=== PATIENT | female | born 1950 | race Caucasian/White ===

== ENCOUNTER → 2021-08-01 | Day surgery (SDC) | payer OTHER | END | disposition home or self-care (01) | LOC: JRADUS-SUR 10:28 | PROVIDERS: ATTEND Nurse Practitioner Family | PROC: 0H9U3ZX Drainage of Left Breast, Percutaneous Approach, Diagnostic (ICD-10-PCS; principal; 2021-08-01) | DX: C50.912 Malignant neoplasm of unspecified site of left female breast (principal); C77.3 Secondary and unspecified malignant neoplasm of axilla and upper limb lymph nodes | CPT/HCPCS: 19083; 19084; 77065-TC; 87899; 88305-TC; 88342-TC; A4648 ==

== ENCOUNTER → 2021-09-27 | Day surgery (SDC) | payer OTHER | END | disposition home or self-care (01) | LOC: FRADUS-SUR 12:02 | PROVIDERS: ATTEND Internal Medicine Hematology & Oncology | PROC: 0HBU3ZX Excision of Left Breast, Percutaneous Approach, Diagnostic (ICD-10-PCS; principal; 2021-09-27) | DX: C50.912 Malignant neoplasm of unspecified site of left female breast (principal); Z17.0 Estrogen receptor positive status [ER+]; N63.20 Unspecified lump in the left breast, unspecified quadrant | CPT/HCPCS: 19085; 77065-TC; 88305-TC; 88342-TC; A4648; A9579; C1887 ==

== ENCOUNTER 2021-10-09 04:59 | Day surgery (SDC) | payer OTHER ==
[2021-10-08 09:33] VITALS: BMI 24.0
[2021-10-09 11:15] LABS: BASO % 0.6 % (0-2.0); EOS % 2.3 % (0-4.5); HEMATOCRIT 39.8 % (32.4-45.2); HEMOGLOBIN 13.2 GM/dL (10.7-15.3); LYMPH % 33.7 % (8-40); MCH 29.8 pg (25.7-33.7); MCHC 33.2 g/dl (32.0-36.0); MEAN CELL VOLUME 89.6 fl (80-96); MEAN PLT VOLUME 8.7 fl (7.5-11.1); NEUT % 56.4 % (42.8-82.8); PLATELET COUNT 186 10^3/uL (134-434); RBC 4.44 M/mm3 (3.60-5.2); RDW 13.7 % (11.6-15.6); WHITE BLOOD COUNT 4.7 K/mm3 (4.0-10.0)
[2021-10-09] MEDS ORDERED: MIDAZOLAM HCL 2 MG/2 ML SINGLE DOSE VIAL IVPUSH ONE (13:05)
[2021-10-09] MEDS ORDERED: MIDAZOLAM HCL 2 MG/2 ML SINGLE DOSE VIAL ONE (13:50)
[2021-10-09 17:45] VITALS: BP 131/69; PULSE 75; TEMP 97.5
== END 2021-10-09 17:45 | disposition home or self-care (01) ==
LOC: JRADIR 04:59
PROVIDERS: ATTEND Internal Medicine Hematology & Oncology
DX: Z51.11 Encounter for antineoplastic chemotherapy (principal); C50.919 Malignant neoplasm of unspecified site of unspecified female breast; C79.51 Secondary malignant neoplasm of bone
CPT/HCPCS: 36415; 36561; 77001-TC-FY; 85025; C1788

== ENCOUNTER 2021-10-10 06:37 | Day surgery (SDC) | payer OTHER ==
[2021-10-10 09:09] LABS: HEMOGLOBIN 13.5 GM/dL (10.7-15.3); LYMPH % 9.5 % (8-40); MCH 29.7 pg (25.7-33.7); MCHC 32.9 g/dl (32.0-36.0); MEAN CELL VOLUME 90.4 fl (80-96); MEAN PLT VOLUME 8.5 fl (7.5-11.1); MONO % 0.5 % (3.8-10.2); PLATELET COUNT 234 10^3/uL (134-434); RBC 4.53 M/mm3 (3.60-5.2); RDW 12.9 % (11.6-15.6); WHITE BLOOD COUNT 8.1 K/mm3 (4.0-10.0)
[2021-10-10] MEDS ORDERED: SODIUM CHLORIDE 500 ML IV STA (09:17)
[2021-10-10] MEDS ORDERED: SODIUM CHLORIDE 250 ML IV STA (09:27)
[2021-10-10 09:28] LABS: CALCIUM 10.5 mg/dL (8.5-10.1)
[2021-10-10 09:29] LABS: ALBUMIN 4.1 g/dl (3.4-5.0); BLOOD UREA NITROGEN 16.5 mg/dL (7-18)
[2021-10-10] MEDS ORDERED: DEXAMETHASONE SODIUM PHOSPHATE 10 MG in SODIUM CHLORIDE 50 ML IVPB ONE (09:30)
[2021-10-10] MEDS ORDERED: PALONOSETRON HCL 0.25 MG/5 ML VIAL IVPUSH ONE (09:30)
[2021-10-10 09:32] LABS: CREATININE 0.7 mg/dL (0.55-1.3)
[2021-10-10 09:34] LABS: BILIRUBIN,TOTAL 0.4 mg/dL (0.2-1); TOT PROT 7.6 g/dl (6.4-8.2)
[2021-10-10] MEDS ORDERED: DOCETAXEL 128 MG in SODIUM CHLORIDE 250 ML IV ONE (10:00)
[2021-10-10] MEDS ORDERED: CYCLOPHOSPHAMIDE INJECTION 1,000 MG in SODIUM CHLORIDE 250 ML IVPB ONE (11:00)
[2021-10-10] MEDS ORDERED: PEGFILGRASTIM (NEULASTA ONPRO) 6 MG/0.6 ML KIT SQ ONE (11:30)
[2021-10-10 16:13] VITALS: TEMP 98.1
[2021-10-10] MEDS ORDERED: PORTA CATH FLUSH 10 ML IVPUSH PRN (16:23)
[2021-10-10 16:25] VITALS: BP 124/54; PULSE 88
== END 2021-10-10 14:30 | disposition home or self-care (01) ==
LOC: JONCCHEMO 06:37
PROVIDERS: ATTEND Internal Medicine Hematology & Oncology
PROC: 3E04305 Introduction of Other Antineoplastic into Central Vein, Percutaneous Approach (ICD-10-PCS; principal; 2021-10-10)
PROC: 3E013GC Introduction of Other Therapeutic Substance into Subcutaneous Tissue, Percutaneous Approach (ICD-10-PCS; 2021-10-10)
DX: Z51.11 Encounter for antineoplastic chemotherapy (principal); C50.919 Malignant neoplasm of unspecified site of unspecified female breast; C79.51 Secondary malignant neoplasm of bone
CPT/HCPCS: 36415; 80053; 85025; 96361; 96372; 96375; 96413; 96417; J2469; J2506; J9070; J9171

== ENCOUNTER 2021-10-31 06:49 | Day surgery (SDC) | payer OTHER ==
[2021-10-31 09:07] LABS: BASO % 0.1 % (0-2.0); HEMATOCRIT 35.1 % (32.4-45.2); HEMOGLOBIN 11.6 GM/dL (10.7-15.3); LYMPH % 8.5 % (8-40); MCH 29.3 pg (25.7-33.7); MCHC 33.1 g/dl (32.0-36.0); MEAN CELL VOLUME 88.4 fl (80-96); MEAN PLT VOLUME 7.4 fl (7.5-11.1); MONO % 1.2 % (3.8-10.2); NEUT % 90.2 % (42.8-82.8); PLATELET COUNT 407 10^3/uL (134-434); RBC 3.97 M/mm3 (3.60-5.2); RDW 13.5 % (11.6-15.6); WHITE BLOOD COUNT 9.1 K/mm3 (4.0-10.0)
[2021-10-31 09:32] LABS: CALCIUM 10.1 mg/dL (8.5-10.1)
[2021-10-31 09:33] LABS: ALBUMIN 3.7 g/dl (3.4-5.0); BLOOD UREA NITROGEN 14.3 mg/dL (7-18)
[2021-10-31 09:36] LABS: CREATININE 0.7 mg/dL (0.55-1.3)
[2021-10-31 09:38] LABS: BILIRUBIN,TOTAL 0.3 mg/dL (0.2-1); TOT PROT 7.3 g/dl (6.4-8.2)
[2021-10-31] MEDS ORDERED: SODIUM CHLORIDE 250 ML IV STA (09:42)
[2021-10-31] MEDS ORDERED: PALONOSETRON HCL 0.25 MG/5 ML VIAL IVPUSH ONE (10:00)
[2021-10-31] MEDS ORDERED: DEXAMETHASONE SODIUM PHOSPHATE 10 MG in SODIUM CHLORIDE 50 ML IVPB ONE (10:00)
[2021-10-31] MEDS ORDERED: DOCETAXEL 128 MG in SODIUM CHLORIDE 250 ML IV ONE (10:30)
[2021-10-31] MEDS ORDERED: CYCLOPHOSPHAMIDE INJECTION 1,000 MG in SODIUM CHLORIDE 250 ML IVPB ONE (11:30)
[2021-10-31] MEDS ORDERED: PEGFILGRASTIM (NEULASTA ONPRO) 6 MG/0.6 ML KIT SQ ONE (12:00)
[2021-10-31 17:57] VITALS: BP 137/72; PULSE 88; TEMP 97.5
[2021-10-31] MEDS ORDERED: PORTA CATH FLUSH 10 ML IVPUSH PRN (17:58)
== END 2021-10-31 14:15 | disposition home or self-care (01) ==
LOC: JONCCHEMO 06:49
PROVIDERS: ATTEND Internal Medicine Hematology & Oncology
DX: Z51.11 Encounter for antineoplastic chemotherapy (principal); C50.919 Malignant neoplasm of unspecified site of unspecified female breast; C79.51 Secondary malignant neoplasm of bone
CPT/HCPCS: 36415; 80053; 85025; 86704; 86705; 87340; 87517; 96361; 96367; 96375; 96413; 96417; J2469; J2506; J9070; J9171

== ENCOUNTER 2021-11-21 06:33 | Day surgery (SDC) | payer OTHER ==
[2021-11-21] MEDS ORDERED: PALONOSETRON HCL 0.25 MG/5 ML VIAL IVPUSH ONE (09:30)
[2021-11-21] MEDS ORDERED: DEXAMETHASONE SODIUM PHOSPHATE 10 MG in SODIUM CHLORIDE 50 ML IVPB ONE (09:30)
[2021-11-21] MEDS ORDERED: DOCETAXEL 128 MG in SODIUM CHLORIDE 250 ML IV ONE (10:00)
[2021-11-21] MEDS ORDERED: SODIUM CHLORIDE 250 ML IV STA (10:19)
[2021-11-21 10:25] LABS: HEMATOCRIT 34.7 % (32.4-45.2); HEMOGLOBIN 11.4 GM/dL (10.7-15.3); MCH 29.6 pg (25.7-33.7); MCHC 32.9 g/dl (32.0-36.0); MEAN CELL VOLUME 89.8 fl (80-96); MEAN PLT VOLUME 7.8 fl (7.5-11.1); MONO % 1.7 % (3.8-10.2); NEUT % 87.3 % (42.8-82.8); PLATELET COUNT 266 10^3/uL (134-434); RBC 3.86 M/mm3 (3.60-5.2); RDW 15.8 % (11.6-15.6); WHITE BLOOD COUNT 6.9 K/mm3 (4.0-10.0)
[2021-11-21 10:46] LABS: BLOOD UREA NITROGEN 16.3 mg/dL (7-18)
[2021-11-21 10:49] LABS: CREATININE 0.7 mg/dL (0.55-1.3)
[2021-11-21 10:50] LABS: TOT PROT 7.2 g/dl (6.4-8.2)
[2021-11-21 10:51] LABS: BILIRUBIN,TOTAL 0.5 mg/dL (0.2-1)
[2021-11-21] MEDS ORDERED: CYCLOPHOSPHAMIDE INJECTION 1,000 MG in SODIUM CHLORIDE 250 ML IVPB ONE (11:00)
[2021-11-21] MEDS ORDERED: ALTEPLASE (CATHFLO) 2 MG/2 ML VIAL CVP ONE (11:15)
[2021-11-21] MEDS ORDERED: PEGFILGRASTIM (NEULASTA ONPRO) 6 MG/0.6 ML KIT SQ ONE (11:30)
[2021-11-21 16:20] VITALS: TEMP 98.3
[2021-11-21] MEDS ORDERED: PORTA CATH FLUSH 10 ML IVPUSH PRN (16:20)
[2021-11-21 16:29] VITALS: BP 131/68; PULSE 87
== END 2021-11-21 15:00 | disposition home or self-care (01) ==
LOC: JONCCHEMO 06:33
PROVIDERS: ATTEND Internal Medicine Hematology & Oncology
PROC: 3E04305 Introduction of Other Antineoplastic into Central Vein, Percutaneous Approach (ICD-10-PCS; principal; 2021-11-21)
PROC: 3E043GC Introduction of Other Therapeutic Substance into Central Vein, Percutaneous Approach (ICD-10-PCS; 2021-11-21)
PROC: 3E0437Z Introduction of Electrolytic and Water Balance Substance into Central Vein, Percutaneous Approach (ICD-10-PCS; 2021-11-21)
PROC: 3E013GC Introduction of Other Therapeutic Substance into Subcutaneous Tissue, Percutaneous Approach (ICD-10-PCS; 2021-11-21)
DX: Z51.11 Encounter for antineoplastic chemotherapy (principal); C50.919 Malignant neoplasm of unspecified site of unspecified female breast; C79.51 Secondary malignant neoplasm of bone
CPT/HCPCS: 36415; 80053; 85025; 86704; 86705; 96361; 96367; 96372; 96375; 96413; 96417; J2469; J2506; J2997; J9070; J9171

== ENCOUNTER 2021-12-12 06:34 | Day surgery (SDC) | payer OTHER ==
[2021-12-12] MEDS ORDERED: DEXAMETHASONE SODIUM PHOSPHATE 10 MG in SODIUM CHLORIDE 50 ML IVPB ONE (09:30)
[2021-12-12] MEDS ORDERED: PALONOSETRON HCL 0.25 MG/5 ML VIAL IVPUSH ONE (09:30)
[2021-12-12 09:55] LABS: HEMATOCRIT 32.7 % (32.4-45.2); HEMOGLOBIN 10.8 GM/dL (10.7-15.3); LYMPH % 10.7 % (8-40); MCH 29.8 pg (25.7-33.7); MEAN CELL VOLUME 90.4 fl (80-96); MEAN PLT VOLUME 7.7 fl (7.5-11.1); MONO % 1.5 % (3.8-10.2); NEUT % 87.8 % (42.8-82.8); PLATELET COUNT 244 10^3/uL (134-434); RBC 3.61 M/mm3 (3.60-5.2); RDW 18.4 % (11.6-15.6); WHITE BLOOD COUNT 6.5 K/mm3 (4.0-10.0)
[2021-12-12] MEDS ORDERED: DOCETAXEL 128 MG in SODIUM CHLORIDE 250 ML IV ONE (10:00)
[2021-12-12 10:15] LABS: CALCIUM 9.7 mg/dL (8.5-10.1)
[2021-12-12 10:16] LABS: ALBUMIN 3.9 g/dl (3.4-5.0); BLOOD UREA NITROGEN 17.3 mg/dL (7-18); MAGNESIUM 2.1 mg/dL (1.8-2.4)
[2021-12-12 10:19] LABS: CREATININE 0.7 mg/dL (0.55-1.3)
[2021-12-12 10:20] LABS: BILIRUBIN,TOTAL 0.4 mg/dL (0.2-1); TOT PROT 6.9 g/dl (6.4-8.2)
[2021-12-12] MEDS ORDERED: CYCLOPHOSPHAMIDE INJECTION 1,000 MG in SODIUM CHLORIDE 250 ML IVPB ONE (11:00)
[2021-12-12] MEDS ORDERED: PEGFILGRASTIM (NEULASTA ONPRO) 6 MG/0.6 ML KIT SQ ONE (11:30)
[2021-12-12 17:04] VITALS: RESP 18; TEMP 97.8
[2021-12-12] MEDS ORDERED: PORTA CATH FLUSH 10 ML IVPUSH PRN (17:08)
[2021-12-12 17:11] VITALS: BP 136/69; PULSE 87
== END 2021-12-12 14:10 | disposition home or self-care (01) ==
LOC: JONCCHEMO 06:34
PROVIDERS: ATTEND Internal Medicine Hematology & Oncology
DX: Z51.11 Encounter for antineoplastic chemotherapy (principal); C50.919 Malignant neoplasm of unspecified site of unspecified female breast; C79.51 Secondary malignant neoplasm of bone
CPT/HCPCS: 36415; 80053; 82306; 82728; 83540; 83550; 83735; 85025; 96372; 96375; 96413; 96417; J2469; J2506; J9070; J9171

== ENCOUNTER 2021-12-14 11:49 | Day surgery (SDC) | payer OTHER ==
[~2021-12-14 11:49] MED LIST: PEGFILGRASTIM-CBQV (UDENYCA) 6 MG/0.6 ML SYRINGE SQ ONE
[2021-12-14 16:28] VITALS: BP 118/57; PULSE 83; RESP 20; TEMP 98.2
== END 2021-12-14 12:00 | disposition home or self-care (01) ==
LOC: JONCCHEMO 11:49
PROVIDERS: ATTEND Internal Medicine Hematology & Oncology
PROC: 3E013GC Introduction of Other Therapeutic Substance into Subcutaneous Tissue, Percutaneous Approach (ICD-10-PCS; principal; 2021-12-14)
DX: C50.919 Malignant neoplasm of unspecified site of unspecified female breast (principal); C79.51 Secondary malignant neoplasm of bone; Z76.89 Persons encountering health services in other specified circumstances
CPT/HCPCS: 96372; Q5111

== ENCOUNTER 2022-01-02 06:36 | Day surgery (SDC) | payer OTHER ==
[2022-01-02 09:55] LABS: BASO % 0.1 % (0-2.0); HEMATOCRIT 33.8 % (32.4-45.2); HEMOGLOBIN 11.4 GM/dL (10.7-15.3); LYMPH % 8.4 % (8-40); MCH 30.7 pg (25.7-33.7); MCHC 33.8 g/dl (32.0-36.0); MEAN CELL VOLUME 90.7 fl (80-96); MEAN PLT VOLUME 7.3 fl (7.5-11.1); MONO % 1.5 % (3.8-10.2); PLATELET COUNT 293 10^3/uL (134-434); RBC 3.73 M/mm3 (3.60-5.2); RDW 20.3 % (11.6-15.6); WHITE BLOOD COUNT 6.7 K/mm3 (4.0-10.0)
[2022-01-02] MEDS ORDERED: PALONOSETRON HCL 0.25 MG/5 ML VIAL IVPUSH ONE (10:00)
[2022-01-02] MEDS ORDERED: DEXAMETHASONE SODIUM PHOSPHATE 10 MG in SODIUM CHLORIDE 50 ML IVPB ONE (10:00)
[2022-01-02 10:22] LABS: CALCIUM 9.9 mg/dL (8.5-10.1)
[2022-01-02 10:23] LABS: BLOOD UREA NITROGEN 15.1 mg/dL (7-18); MAGNESIUM 1.9 mg/dL (1.8-2.4)
[2022-01-02 10:26] LABS: CREATININE 0.7 mg/dL (0.55-1.3)
[2022-01-02 10:27] LABS: BILIRUBIN,TOTAL 0.5 mg/dL (0.2-1)
[2022-01-02 10:29] LABS: TOT PROT 7.4 g/dl (6.4-8.2)
[2022-01-02] MEDS ORDERED: DOCETAXEL 128 MG in SODIUM CHLORIDE 250 ML IV ONE (10:30)
[2022-01-02] MEDS ORDERED: CYCLOPHOSPHAMIDE INJECTION 1,000 MG in SODIUM CHLORIDE 250 ML IVPB ONE (11:30)
[2022-01-02] MEDS ORDERED: PEGFILGRASTIM (NEULASTA ONPRO) 6 MG/0.6 ML KIT SQ ONE (12:00)
[2022-01-02 16:28] VITALS: RESP 20; TEMP 98.6
[2022-01-02 16:32] VITALS: BP 138/66; PULSE 83
[2022-01-02] MEDS ORDERED: PORTA CATH FLUSH 10 ML IVPUSH PRN (16:32)
== END 2022-01-02 14:15 | disposition home or self-care (01) ==
LOC: JONCCHEMO 06:36
PROVIDERS: ATTEND Internal Medicine Hematology & Oncology
PROC: 3E04305 Introduction of Other Antineoplastic into Central Vein, Percutaneous Approach (ICD-10-PCS; principal; 2022-01-02)
PROC: 3E013GC Introduction of Other Therapeutic Substance into Subcutaneous Tissue, Percutaneous Approach (ICD-10-PCS; 2022-01-02)
DX: Z51.11 Encounter for antineoplastic chemotherapy (principal); C50.919 Malignant neoplasm of unspecified site of unspecified female breast; C79.51 Secondary malignant neoplasm of bone
CPT/HCPCS: 36415; 80053; 83735; 85025; 96372; 96375; 96413; 96417; J2469; J2506; J9070; J9171

== ENCOUNTER 2022-01-04 16:27 | Emergency (ER) | payer OTHER ==
[2022-01-04 16:35] VITALS: BP 132/68; PULSE 95; RESP 18; TEMP 98; BMI 26.3
[2022-01-04] MEDS ORDERED: BACITRACIN 15 GM TUBE TOPICAL OINTMENT TP ONE (18:32)
[2022-01-04] MEDS ORDERED: BACITRACIN 15 GM TUBE TOPICAL OINTMENT ONE (18:33)
== END 2022-01-04 19:02 | disposition home or self-care (01) ==
LOC: JER 16:27
DX: T20.00XA Burn of unspecified degree of head, face, and neck, unspecified site, initial encounter (principal)
CPT/HCPCS: 99283-25

== ENCOUNTER 2022-01-24 07:45 | Day surgery (SDC) | payer OTHER ==
[2022-01-24] MEDS ORDERED: PALONOSETRON HCL 0.25 MG/5 ML VIAL IVPUSH ONE (09:30)
[2022-01-24] MEDS ORDERED: DEXAMETHASONE SODIUM PHOSPHATE 10 MG in SODIUM CHLORIDE 50 ML IVPB ONE (09:30)
[2022-01-24] MEDS ORDERED: DOCETAXEL 128 MG in SODIUM CHLORIDE 250 ML IV ONE (10:00)
[2022-01-24 10:13] LABS: HEMATOCRIT 34.7 % (32.4-45.2); HEMOGLOBIN 11.7 GM/dL (10.7-15.3); LYMPH % 8.9 % (8-40); MCH 31.1 pg (25.7-33.7); MCHC 33.6 g/dl (32.0-36.0); MEAN CELL VOLUME 92.6 fl (80-96); MEAN PLT VOLUME 7.3 fl (7.5-11.1); MONO % 1.1 % (3.8-10.2); PLATELET COUNT 288 10^3/uL (134-434); RBC 3.75 M/mm3 (3.60-5.2); WHITE BLOOD COUNT 6.3 K/mm3 (4.0-10.0)
[2022-01-24 10:41] LABS: CALCIUM 10.1 mg/dL (8.5-10.1)
[2022-01-24 10:42] LABS: ALBUMIN 4.2 g/dl (3.4-5.0); MAGNESIUM 2.1 mg/dL (1.8-2.4)
[2022-01-24 10:45] LABS: BILIRUBIN,DIRECT 0.1 mg/dL (0.0-0.2); CREATININE 0.7 mg/dL (0.55-1.3)
[2022-01-24 10:46] LABS: BILIRUBIN,TOTAL 0.9 mg/dL (0.2-1); TOT PROT 7.5 g/dl (6.4-8.2)
[2022-01-24] MEDS ORDERED: CYCLOPHOSPHAMIDE INJECTION 1,000 MG in SODIUM CHLORIDE 250 ML IVPB ONE (11:00)
[2022-01-24] MEDS ORDERED: PEGFILGRASTIM (NEULASTA ONPRO) 6 MG/0.6 ML KIT SQ ONE (12:00)
[2022-01-24 14:49] VITALS: RESP 18; TEMP 98.2
[2022-01-24 16:04] VITALS: BP 129/67; PULSE 91
[2022-01-24] MEDS ORDERED: PORTA CATH FLUSH 10 ML IVPUSH PRN (16:05)
== END 2022-01-24 15:25 | disposition home or self-care (01) ==
LOC: JONCCHEMO 07:45
PROVIDERS: ATTEND Internal Medicine Hematology & Oncology
PROC: 3E04305 Introduction of Other Antineoplastic into Central Vein, Percutaneous Approach (ICD-10-PCS; principal; 2022-01-24)
PROC: 3E013GC Introduction of Other Therapeutic Substance into Subcutaneous Tissue, Percutaneous Approach (ICD-10-PCS; 2022-01-24)
DX: Z51.11 Encounter for antineoplastic chemotherapy (principal); C50.919 Malignant neoplasm of unspecified site of unspecified female breast; C79.51 Secondary malignant neoplasm of bone
CPT/HCPCS: 36415; 80048; 80076; 82378; 83735; 85025; 86300; 96372; 96375; 96413; 96417; J2469; J2506; J9070; J9171

== ENCOUNTER → 2022-02-20 | Day surgery (SDC) | payer OTHER | END | disposition home or self-care (01) | LOC: JRADUS-SUR 08:10 | PROVIDERS: ATTEND Surgery Surgical Oncology | PROC: BH41ZZZ Ultrasonography of Left Breast (ICD-10-PCS; principal; 2022-02-20) | DX: C50.912 Malignant neoplasm of unspecified site of left female breast (principal) | CPT/HCPCS: 19281; A4648 ==

== ENCOUNTER 2022-02-27 06:42 | Inpatient (IN) | payer OTHER ==
[2022-02-26 11:06] VITALS: BMI 24.6
[2022-02-27] MEDS ORDERED: ceFAZolin SODIUM 1 GM VIAL IVPB ONE (12:12)
[2022-02-27] MEDS ORDERED: oxyCODONE HCL 5 MG TABLET PO PRN ×2 (14:41)
[2022-02-27] MEDS ORDERED: DOCUSATE SODIUM 100 MG CAPSULE (FP) PO PRN (14:41)
[2022-02-27] MEDS ORDERED: ONDANSETRON 8 MG TABLET (FP) PO PRN (14:44)
[2022-02-27] MEDS ORDERED: ALBUTEROL SO4 HFA INHALER IH SCH (14:45)
[2022-02-27] MEDS ORDERED: LOPERAMIDE HCL 2 MG PO SCH (14:45)
[2022-02-27] MEDS ORDERED: ONDANSETRON 4 MG/2 ML VIAL IVPUSH PRN (15:10)
[2022-02-27] MEDS ORDERED: ACETAMINOPHEN 1000 MG/100 ML BAG IVPB ONE (15:11)
[2022-02-27] MEDS: CEFAZOLIN 1 GM in DEXTROSE 5%-WATER - 50 ML IVPB SCH (17:42)
[2022-02-27] MEDS: LACTATED RINGERS SOLUTION 1,000 ML IV SCH (17:42)
[2022-02-27 21:07] VITALS: RESP 18
[2022-02-27] MEDS: BUDESONIDE/FORMETEROL FUMARATE 80/4.5 mcg INHALER IH SCH (21:50)
[2022-02-28] MEDS: CEFAZOLIN 1 GM in DEXTROSE 5%-WATER - 50 ML IVPB SCH ×3 (00:08→12:00)
[2022-02-28] MEDS: LACTATED RINGERS SOLUTION 1,000 ML IV SCH (03:36)
[2022-02-28] MEDS ORDERED: metFORMIN HCL 500 MG TABLET (FP) PO SCH (07:00)
[2022-02-28] MEDS ORDERED: oxyCODONE HCL 5 MG TABLET PO PRN (08:18)
[2022-02-28] MEDS: HEPARIN NA (PORCINE) 5,000 UNITS/ML 1ML VIAL SQ SCH ×3 (08:48→09:52)
[2022-02-28] MEDS: BUDESONIDE/FORMETEROL FUMARATE 80/4.5 mcg INHALER IH SCH (09:54)
[2022-02-28] MEDS ORDERED: PANTOPRAZOLE 40 MG TABLET PO SCH (10:00)
[2022-02-28] MEDS ORDERED: ATORVASTATIN CA 10 MG TABLET (FP) PO SCH (10:00)
[2022-02-28] MEDS ORDERED: VALSARTAN 40 MG TABLET PO SCH (10:00)
[2022-02-28] MEDS ORDERED: LORATADINE 10 MG TABLET PO SCH (10:00)
[2022-02-28 11:43] LABS: HEMATOCRIT 30.9 % (32.4-45.2); HEMOGLOBIN 10.1 GM/dL (10.7-15.3); MCH 29.8 pg (25.7-33.7); MCHC 32.7 g/dl (32.0-36.0); MEAN CELL VOLUME 90.9 fl (80-96); PLATELET COUNT 245 10^3/uL (134-434); RDW 17.6 % (11.6-15.6); WHITE BLOOD COUNT 6.5 K/mm3 (4.0-10.0)
[2022-02-28 12:17] LABS: BLOOD UREA NITROGEN 10.1 mg/dL (7-18)
[2022-02-28 12:20] LABS: CREATININE 0.5 mg/dL (0.55-1.3)
[2022-02-28 16:33] VITALS: BP 130/66; PULSE 91; TEMP 98
== END 2022-02-28 15:44 | disposition home health service (06) | DRG 581 ==
LOC: JASUSAT 06:42 → EDSTATUS 10:15 → J2C 14:41 → J6S 16:41
PROVIDERS: ADMIT Surgery Surgical Oncology; ATTEND Surgery Surgical Oncology
PROC: 0HTU0ZZ Resection of Left Breast, Open Approach (ICD-10-PCS; principal; 2022-02-27 11:00)
PROC: 07B60ZX Excision of Left Axillary Lymphatic, Open Approach, Diagnostic (ICD-10-PCS; 2022-02-27 11:00)
PROC: 0HHU0NZ Insertion of Tissue Expander into Left Breast, Open Approach (ICD-10-PCS; 2022-02-27 11:00)
PROC: 4A1GXSH Monitoring of Skin and Breast Vascular Perfusion using Indocyanine Green Dye, External Approach (ICD-10-PCS; 2022-02-27 11:00)
DX: C50.912 Malignant neoplasm of unspecified site of left female breast (principal)
CPT/HCPCS: 36415; 76098-TC-FY; 78195-TC; 80048; 82962; 85027; 86850; 86900; 86901; 88307-TC; 88341-TC; 94010; 94760; A9541; C1789; J1644; Q4116

== ENCOUNTER → 2022-04-01 | Day surgery (SDC) | payer OTHER ==
[2022-04-01 10:04] LABS: BASO % 0.8 % (0-2.0); HEMATOCRIT 36.9 % (32.4-45.2); HEMOGLOBIN 12.2 GM/dL (10.7-15.3); LYMPH % 31.2 % (8-40); MCH 29.3 pg (25.7-33.7); MCHC 33.1 g/dl (32.0-36.0); MEAN CELL VOLUME 88.3 fl (80-96); MEAN PLT VOLUME 7.3 fl (7.5-11.1); MONO % 12.2 % (3.8-10.2); NEUT % 51.8 % (42.8-82.8); PLATELET COUNT 224 10^3/uL (134-434); RBC 4.19 M/mm3 (3.60-5.2); RDW 15.8 % (11.6-15.6); WHITE BLOOD COUNT 3.8 K/mm3 (4.0-10.0)
[2022-04-01 10:13] LABS: INR 1.02 (0.83-1.09); PROTHROMBIN TIME (PATIENT) 11.7 SEC (9.7-13.0)
== END | disposition home or self-care (01) ==
LOC: JRADIR 08:35
PROVIDERS: ATTEND Internal Medicine Hematology & Oncology
PROC: 0JPT0WZ Removal of Totally Implantable Vascular Access Device from Trunk Subcutaneous Tissue and Fascia, Open Approach (ICD-10-PCS; principal; 2022-04-01)
DX: Z45.2 Encounter for adjustment and management of vascular access device (principal)
CPT/HCPCS: 36415; 36590; 77001-TC-FY; 85025; 85610

== ENCOUNTER 2023-02-03 06:21 | Day surgery (SDC) | payer OTHER ==
[2023-01-29 17:55] VITALS: BMI 25.5
[2023-02-03] MEDS ORDERED: MIDAZOLAM HCL 2 MG/2 ML SINGLE DOSE VIAL ONE (07:28)
[2023-02-03] MEDS ORDERED: PROPOFOL 40 ML ONE (07:28)
[2023-02-03] MEDS ORDERED: SUCCINYLCHOLINE CHLORIDE 200 MG/10 ML SYRINGE ONE (07:29)
[2023-02-03] MEDS ORDERED: ROCURONIUM BROMIDE 50 MG/5 ML SYRINGE ONE (07:29)
[2023-02-03] MEDS ORDERED: ceFAZolin SODIUM 1 GM VIAL ONE ×2 (07:29→07:33)
[2023-02-03] MEDS ORDERED: LIDOCAINE HCL/PF 2% SDV 5ML VIAL ONE (07:29)
[2023-02-03] MEDS ORDERED: SODIUM CHLORIDE 0.9% P/F 10 ML VIAL IJ ONE (07:31)
[2023-02-03] MEDS ORDERED: BUPIVACAINE HCL/PF 2.5 MG/ML - 30 ML VIAL IJ ONE (07:33)
[2023-02-03] MEDS ORDERED: ONDANSETRON 4 MG/2 ML VIAL ONE (08:02)
[2023-02-03] MEDS ORDERED: DEXAMETHASONE SOD PHOSPHATE 4 MG/1 ML VIAL ONE ×2 (08:02)
[2023-02-03] MEDS ORDERED: GLYCOPYRROLATE 0.2 MG/1 ML VIAL ONE ×2 (08:23)
[2023-02-03] MEDS ORDERED: NEOSTIGMINE METHYLSULFATE 0.5 MG/1 ML - 10 ML MDV ONE (08:23)
[2023-02-03] MEDS ORDERED: ACETAMINOPHEN INJECTION 100 ML IVPB ONE (08:42)
[2023-02-03] MEDS ORDERED: PROPOFOL 20 ML ONE (09:44)
[2023-02-03] MEDS ORDERED: SEVOFLURANE 250 ML BTL ONE (10:45)
[2023-02-03] MEDS ORDERED: ONDANSETRON 4 MG/2 ML VIAL IVPUSH PRN (11:26)
[2023-02-03] MEDS ORDERED: oxyCODONE HCL 5 MG TABLET PO PRN ×3 (11:26→11:37)
[2023-02-03] MEDS ORDERED: LACTATED RINGERS SOLUTION 1,000 ML IV SCH ×2 (11:30→11:45)
[2023-02-03] MEDS ORDERED: FENTANYL CITRATE/PF 50 MCG/ML VIAL ONE (11:53)
[2023-02-03] MEDS ORDERED: oxyCODONE HCL 5 MG TABLET PO ONE (12:35)
[2023-02-03 12:44] VITALS: PULSE 76; RESP 18; TEMP 97.9
[2023-02-03 13:56] VITALS: BP 145/74
[2023-02-03] MEDS ORDERED: INSULIN SLIDING SCALE (NOVOLOG) 1 VIAL SQ SCH (16:30)
[2023-02-03] MEDS ORDERED: ONDANSETRON 4 MG/2 ML VIAL IVPB PRN (17:30)
== END 2023-02-03 14:47 | disposition home or self-care (01) ==
LOC: FASU 06:21
PROVIDERS: ATTEND Plastic Surgery
PROC: 0HNU0ZZ Release Left Breast, Open Approach (ICD-10-PCS; principal; 2023-02-03 08:11)
PROC: 0HBT0ZZ Excision of Right Breast, Open Approach (ICD-10-PCS; 2023-02-03 08:11)
DX: C50.912 Malignant neoplasm of unspecified site of left female breast (principal); Z91.02 Food additives allergy status; N65.1 Disproportion of reconstructed breast; N62 Hypertrophy of breast; Z92.3 Personal history of irradiation
CPT/HCPCS: 11970; 19318; 19370; L8600; 82962; 94760